=== PATIENT | female | born 1990 | race African-American/Black ===

== ENCOUNTER 2020-07-03 21:40 | Inpatient (IN) | payer OTHER, SELFPAY ==
[2020-07-03] VITALS (9 sets, daily range): BP systolic 132–154; BP diastolic 64–125; PULSE 18–99; RESP 22; TEMP 36.4–36.6; BMI 35.9
--- NOTE | 2020-07-03 21:40 | LDADM ---
This patient, Vincent Gillespie, was admitted to Labor/Delivery/Recovery 106 on 07/03/20 at 21:40. Plans for labor, pain management and were discussed with patient. Patient/family oriented to hospital policies and general routines including ID bracelet, bed and alarms, visiting hours, pain management, procedures, bathroom and other care routines, personal items, smoking policy, room service/diet and guest tray routines, infant security routines, and visiting hours. Patient/Family are encouraged to report perceived risks to care and to ask questions if they do not understand what they are told or what they should do. See OBIX for further documentation.
[2020-07-03 22:20] LABS: Basophils Percent Auto 0.4 % (0.2-1.2); Eosinophils Percent Auto 0.1 % (0-4.4); Immature Granulocyte Absolute 0.04 K/mm3 (0.00-0.031); Immature Granulocyte Percent A 0.5 % (0-0.5); Lymphocytes Absolute Auto 1.79 K/mm3 (0.9-3.2); Lymphocytes Percent Auto 22.8 % (18.3-44.2); Mean Corpuscular HGB Conc 33.3 g/dl (32-36); Mean Corpuscular Volume 84.1 fl (80-100); Mean Platelet Volume 12.3 fl (7.4-10.4); Monocytes Absolute Auto 0.7 K/mm3 (0.1-0.6); Monocytes Percent Auto 8.7 % (2.6-8.5); Neutrophils Absolute Auto 5.3 K/mm3 (1.3-6.7); Neutrophils Percent Auto 67.5 % (45.5-73.1); Platelet Count Result 134 k/mm3 (150-375); Red Blood Count 4.28 M/mm3 (4.2-5.4); Red Cell Distribution Width 14.5 % (11.5-14.5); White Blood Count 7.9 K/mm3 (4.5-10.0)
--- NOTE | 2020-07-03 23:08 | PM.IMHP ---
H&P: HPI History of Present Illness Date/Time: 07/03/20 23:08 Chief Complaint: contractions Narrative: Vincent Gillespie is a 29 yo @ 38.0wks who presented in to L&D in active labor, found to be 6/50/-1; rapidly progressed to 7/C/0 w/ painful contractions since being seen in clinic earlier today. Good movement. no VB or LOF. She desires a natural delivery w/o pitocin or epidural. 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; repeat antibody testing negative Review of Systems Review of Systems: All systems reviewed & are unremarkable except as noted in HPI and below (HPI) [facility] Family History Family History Other Unknown family medical history Social History Social History Smoking status: Never smoker Substance use: never Spiritual care concerns: No Meds Home Medications and Allergies Home Medications Medication Instructions Recorded Confirmed Type prenat.vits,marie,mkf-bceg-hqjur 1 tablet PO DAILY 06/25/20 06/25/20 History [ #2] Allergies Allergy/AdvReac Type Severity Reaction Status Date / Time No Known Allergies Allergy Verified 06/25/20 12:44 Vital Signs Vital Signs - 24 hr 07/03/20 21:49 07/03/20 21:50 07/03/20 22:01 Temperature 36.4 C Pulse Rate 88 97 Respiratory Rate 22 H Blood Pressure 151/80 H 142/89 H 07/03/20 22:16 Temperature Pulse Rate 85 Respiratory Rate Blood Pressure 134/78 Exam Const: General: cooperative, healthy appearing and acute distress (mild with contractions; handling pain well) Nutritional Appearance: obese Resp: Effort & Inspection: normal respiratory effort and able to speak in complete sentences Cardio: Rate: regular rate GI: GI Palp: No abdominal tenderness and Yes Soft to palpation : Other: FHT's: 140's/ mod efrain/ + accels/ no decels - cat 1 TOCO: ctx's q 2-4min Cervix: 7/C/0 Membranes: AROM, clear 2310 Presentation: cephalic Skin: General skin exam: normal color Neuro: General: patient oriented x3 Extrem: General: normal to inspection Psych: Appearance: grossly normal Affect: normal affect Attitude: cooperative H&P: Results Labs Labs: Short CBC 07/03/20 Range/Units 22:12 WBC 7.9 (4.5-10.0) K/mm3 Hgb 12.0 (12.0-15.0) g/dL Hct 36.0 L (37.0-47.0) % Plt Count 134 L (150-375) k/mm3 Assessment and Plan Assessment and plan (1) Active labor at term: Status: Acute Additional Plan - Admit to L&D for labor - AROM, clear 2310 - Continuous monitoring; reassuring - pt declines pain management; handling well - anticipate
--- NOTE | 2020-07-03 23:19 | WPDHPUPDATE1 ---
History and Physical Update Update Date/Time: 07/03/20 23:19 History and Physical has been reviewed, including an updated exam of the patient. There are NO changes in the patient's condition. Risks, benefits, and alternatives have been discussed and questions answered. Patient agrees to proceed with procedure.
[2020-07-03] MEDS: OXYTOCIN 30 UNITS/NS 500 ML 30 UNITS/500 ML BAG 999 UNITS IV CONT (23:30)
--- NOTE | 2020-07-03 23:40 | PC.NURSE ---
upon pt delivering Dr. Abebe asked pt where pt other child was. pt stated at home asleep. Upon further investigation pt state home alone. FOB was sent home immediately after this information was released.
--- NOTE | 2020-07-03 23:40 | PM.OBPRVD ---
OB - Delivery Note Procedure Delivery date: 07/03/20 Intrapartal events: Precipitous Labor < 3 hours Delivery augmentation: rupture of membranes Delivery monitor: external FHT and external uterine Route of delivery: Laceration Description: None Quantitative Blood Loss (ml): 250 Anesthesia type: None Disposition: floor Narrative: Patient rapidly progressed to complete dilation with strong desire to push. She pushed for 1 contraction and delivered the head over intact perineum. She immediately delivered the shoulders and body without complications. Nuchal cord was noted to be loose. Infant had spontaneous cry. The umbilical cord was clamped and cut. The infant was then placed skin to skin on [facility]. A segment of the cord was collected for cord gases. The remaining cord blood was collected for typing. With Pitocin running and gentle downward traction on the umbilical cord the placenta delivered without complications. Fundal massage revealed good uterine tone and minimal bleeding was noted. The vagina and perineum were examined and no lacerations were noted. Fundal massage revealed good uterine tone and minimal bleeding was still noted. Sponge, lap, and instrument counts were correct at the end procedure. Mom and baby were left bonding in a stable condition. [place] Baby Date of : 07/03/20 Time of : 23:27 Weeks of gestation at delivery: 38 Infant gender: Female presentation: vertex position: Left Occiput Anterior Placenta delivery description: Expressed cord vessel description: 3 Vessels, Nuchal Cord and Loose score one minute: 9 score five minutes: 9
[2020-07-04] VITALS (13 sets, daily range): BP systolic 86–135; BP diastolic 47–115; PULSE 74–92; RESP 16–18; TEMP 36.4–36.9; O2SAT 99–100
[2020-07-04] MEDS: IBUPROFEN 600 MG TABLET PO ×2 (01:12→09:17)
[2020-07-04] MEDS: BENZOCAINE 20% AER SPR (*SP) 56 GM CAN 1 SPRAY TOPICAL (01:40)
[2020-07-04] MEDS: WITCH HAZEL 40 PADS 1 PAD TOPICAL (01:40)
[2020-07-04 06:08] LABS: Hematocrit 35.3 % (37.0-47.0); Hemoglobin 11.7 g/dL (12.0-15.0)
[2020-07-04 07:50] LABS: Rapid Plasma Reagin Non-Reactive (NonReactive)
--- NOTE | 2020-07-04 08:05 | PC.NURSE ---
Consult with pt., mother reports is eagerly feeding with slight tenderness, this is mother's 2nd child to breastfeed. Requested mother call out next feeding for observation per policy. Reviewed feeding cues, frequencies, duration of feedings, feeding elimination flow sheet, and signs of adequate intake. Instructed feeding should be initiated three hours from start of last feeding or if feeding cues are noted before. Mother voiced understanding of information shared.
[2020-07-04] MEDS: MULTIVIT/MIN/PREN/FOL AC/IRON TABLET 1 TAB PO (09:17)
[2020-07-04] MEDS: ACETAMINOPHEN 325 MG TABLET 650 MG PO ×2 (12:48→20:00)
--- NOTE | 2020-07-04 13:09 | PM.OBPNVD ---
OB - PN: Subj Subjective Date/time seen: 07/04/20 13:09 PPD#1 Vincent reports doing well today. She has mild cramping pain; PO meds are helping. 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 She has tolerated regular diet w/o issue. She has voided. She has ambulated without symptoms of anemia. She would like to go home as soon as possible. No CP, SOB, vision changes, PERLA, N/V, fever, chills, dizziness or palpitations. OB - PN: Obj Data Labs CBC & Chem 7: 07/04/20 05:42 Labs: Laboratory Results - last 24 hr 07/03/20 07/03/20 07/03/20 22:12 22:12 22:12 WBC 7.9 RBC 4.28 Hgb 12.0 Hct 36.0 L MCV 84.1 MCH 28.0 MCHC 33.3 RDW 14.5 Plt Count 134 L MPV 12.3 H Immature Gran % (Auto) 0.5 Neut % (Auto) 67.5 Lymph % (Auto) 22.8 [place] % (Auto) 8.7 H Eos % (Auto) 0.1 Baso % (Auto) 0.4 Lymph # (Auto) 1.79 [place] # (Auto) 0.7 H Eos # (Auto) 0.0 Baso # (Auto) 0.0 Abs Immat Gran (auto) 0.04 H Absolute Neuts (auto) 5.3 Absolute Nucleated RBC 0.0 Nucleated RBC % 0.0 RPR Non-reactive Blood Type A Positive Antibody Screen Negative 07/04/20 05:42 WBC RBC Hgb 11.7 L Hct 35.3 L MCV MCH MCHC RDW Plt Count MPV Immature Gran % (Auto) Neut % (Auto) Lymph % (Auto) [place] % (Auto) Eos % (Auto) Baso % (Auto) Lymph # (Auto) [place] # (Auto) Eos # (Auto) Baso # (Auto) Abs Immat Gran (auto) Absolute Neuts (auto) Absolute Nucleated RBC Nucleated RBC % RPR Blood Type Antibody Screen OB - PN A/P Assessment and Plan (1) Normal vaginal delivery of second : Code(s): O80 - Encounter for full-term uncomplicated delivery Status: Acute Plan day: 1 Plan: routine care and discharge home (tomorrow) Comments: - pelvic rest, take meds as prescribed - f/u in 4 wks - ER return precautions discussed: bleeding, HTN, n/v/abd pain, fever Time Spent With Patient Time: Total time spent is greater than 50% in coordination of care (as documented) at patient's floor/unit and/or counseling patient: Review of Systems Review of Systems: All systems reviewed & are unremarkable except as noted in HPI and below (HPI) Exam Const: General: cooperative, healthy appearing, comfortable and no acute distress Resp: Effort & Inspection: normal respiratory effort and able to speak in complete sentences Auscultation: clear to auscultation bilaterally Cardio: Rate: regular rate GI: GI Palp: No abdominal tenderness and Yes Soft to palpation Auscultation: normal bowel sounds : Other: fundus firm below umbilicus; normal lochia Skin: General skin exam: normal color Neuro: General: patient oriented x3 Extrem: General: normal to inspection Psych: Appearance: grossly normal Affect: normal affect Attitude: cooperative
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
--- NOTE | 2020-07-05 08:10 | PC.NURSE ---
Mother called out for assist with feeding. Consulted with patient, reports has fed well since . Mother has nipple discomfort with latch during most of the feeding. Both nipples are slightly reddened, nipple care reviewed and lanolin provided. Advised warm moist heat for 10 minutes a few times per day. Reviewed infant feeding cues, frequencies, duration of feedings, feeding elimination flow sheet, and signs of adequate intake. Demonstrated stimulation techniques to wake for feeding. Assisted with to breast. Reviewed positioning/alignment in cross cradle, holding breast in U hold and guided asymmetrical latch on. was able to latch correctly within a few attempts. nursed eagerly, with steady draws and frequent swallowing noted. Reviewed signs of a correct latch, effective nursing and suck swallow ratio. was able to maintain latch. Mother reported tenderness at times, had slipped to shallow latch. Demonstrated how to adjust latch more deeply while feeding. Mother quickly reports she can feel infant is latched more deeply and has minimal tenderness. Suggested to stimulate infant while feeding to keep infant awake and nursing effectively for increased stimulation and increased intake. Instructed mother to call out for RN assistance if she is unable to latch for feeding or she has discomfort with nursing. Instructed feeding should be initiated three hours from start of last feeding or if feeding cues are noted before. Mother voiced understanding of information shared. Mother plans on discharge this day. Mother is able to independently latch with appropriate positioning/alignment. She reports slight nipple discomfort which improved greatly with deeper latch. , is feeding as required and waking to feed if needed. has had several effective feedings in the past 24 hours, and is currently meeting outcomes for weight, output, jaundice and feeding frequencies. Mother states she feels confident to continue effective at home. Reviewed transition to breast milk, signs of adequate intake, and engorgement/relief. Instructed to call ICP if intake/output less than required. Reviewed regular medications mother is taking. Information provided per [facility]. Reviewed community resources on the [facility] and in the Mom/Baby guide. Information on outpatient services provided. Mother has no further questions at this time.
[2020-07-05 08:20] VITALS: BP 99/69; PULSE 78; RESP 18; TEMP 36.4; O2SAT 100
--- NOTE | 2020-07-05 10:00 | PC.NURSE ---
Felisha from [facility] called this AM to inform me that she spoke with DCFS and they will be making a home visit to the pt's home today to evaluate home situation based on recent hx as referred to in Care Coordination note. Pt may be d/c'd per MD order and DCFS will follow up after discharge.
[2020-07-05] MEDS: ACETAMINOPHEN 325 MG TABLET 650 MG PO (10:40)
[2020-07-05] MEDS: MULTIVIT/MIN/PREN/FOL AC/IRON TABLET 1 TAB PO (10:40)
--- NOTE | 2020-07-05 11:35 | PCCCNOTE ---
[facility]ination. Spoke with Danilo DCFS traffic investigator, from [place], [place] [phone] and she reports pt. and baby can go home today before she sees them. She plans to see them at their home this afternoon. She attempted to go to home yesterday, but dad must not have been home. Notified RN who will tell patient.
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
--- NOTE | 2020-07-09 12:51 | PM.OBDSVD ---
DS: Admitting Diagnosis Admitting Diagnosis Admitting Diagnosis: contractions; labor DS: Discharge Diagnosis Discharge Diagnosis (1) Normal vaginal delivery of second : Code(s): O80 - Encounter for full-term uncomplicated delivery Status: Acute (2) Active labor at term: Status: Acute OB - DS: Summary OB Procedures : Ultrasound OB Procedures Intrapartum: Spontaneous Vag Delivery OB Procedures: : None Peripartum Data Delivery Method: Natural Vaginal Laceration Description: None complications: none Leming 1: Gender: Female Disposition of : home Status at Discharge Functional status at discharge: independent ambulation Overall status at discharge: patient is back to baseline Time Spent with Patient Time attestation: Total time spent providing and/or coordinating discharge services: Time spent: Less than 30 minutes Exam Const: General: cooperative, comfortable and no acute distress Nutritional Appearance: obese Resp: Effort & Inspection: normal respiratory effort and able to speak in complete sentences Auscultation: clear to auscultation bilaterally Cardio: Rate: regular rate GI: Inspection: normal to inspection and non-distended GI Palp: No abdominal tenderness and Yes Soft to palpation Auscultation: normal bowel sounds : Other: fundus firm below umbilicus Skin: General skin exam: normal color Neuro: General: patient oriented x3 Extrem: General: normal to inspection Psych: Appearance: grossly normal Affect: normal affect Attitude: cooperative Discharge Plan Discharge Attending physician on discharge: Felisha Abebe Discharging Clinician: Felisha Abebe Anticipated Discharge Date/Time: 07/05/20 10:00 Patient Disposition: Home, Self-Care Activity: pelvic rest Diet: regular Discharge Instructions: Education: Mom and Baby Guide Given to: Mother Follow-Up: Call your delivering provider's office for an appointment to be seen in: 4 Weeks Mom and baby should come to the [facility] for the follow-up appointment. Appointment Date/Time: July 08, 2020 at 10:00 am What to expect at your follow-up visit: Physical Assessment Call [phone] if you are unable to keep your appointment time. BREAST CARE: * Wear a snug supportive bra. * For engorgement discomfort: Breast Feeding: * Apply warm moist washcloths * Express milk as needed to relieve engorgement * Wear loose clothing * For sore nipples: * Identify correct latch-on * Apply warm moist washcloths before and after nursing * Air dry nipples after nursing * May apply Lansinoh cream to nipples PERINEAL CARE: * Until bleeding stops, use your vahid bottle after urinating * Change your pad frequently throughout the day * You may take sitz baths several times a day (fill your bathtub with warm water and soak for 20 minutes.) Do NOT bathe in the water * No tub baths until seen by your physician - You may shower ACTIVITY: * Rest as much as possible. * Do not exercise or lift anything heavier than your baby (such as laundry or other children.) * Avoid stairs or driving as much as possible. * Do not put anything into the vagina. No douching, tampons, or sexual activity until seen by physician. NOTIFY PHYSICIAN IF YOU HAVE ANY QUESTIONS OR IF ANY OF THE FOLLOWING SYMPTOMS OCCUR: * If your stitches become red, swollen, or more painful than what you have experienced in the hospital. * If your vaginal bleeding becomes foul smelling. * If your vaginal bleeding becomes more heavy than a period or if your bleeding changes from pink to bright red. However, you may pass an occasional walnut-sized clot once or twice for the first week . * If you experience a sharp, shooting pain in you calves. * If you discover a hard, reddened area on your breast or if you experience flu-like sym
== END 2020-07-05 13:45 | disposition home or self-care (01) | DRG 560 ==
LOC: ANHLDR 21:53 → ANHOB2 07-04 01:55
PROVIDERS: Admitting Provider Obstetrics & Gynecology; Visit Provider Obstetrics & Gynecology
DX: O62.3 Precipitate labor (principal); O99.02 Anemia complicating childbirth; D64.9 Anemia, unspecified; O69.81X0 Labor and delivery complicated by cord around neck, without compression, not applicable or unspecified; Z3A.38 38 weeks gestation of pregnancy; Z37.0 Single live birth
CPT/HCPCS: 36415; 85014; 85018; 85025; 86592; 86850; 86900; 86901; A9270; J2590

== ENCOUNTER 2023-05-24 12:05 | Inpatient (IN) | payer OTHER, SELFPAY ==
[2023-05-24] VITALS (20 sets, daily range): BP systolic 88–153; BP diastolic 35–106; PULSE 81–180; RESP 18; TEMP 36.2–36.6; O2SAT 98–100; BMI 35.7
[2023-05-24 12:44] LABS: Basophils Percent Auto 0.3 % (0.2-1.2); Eosinophils Percent Auto 0.2 % (0-4.4); Hematocrit 39.3 % (37.0-47.0); Hemoglobin 12.6 g/dL (12.0-15.0); Immature Granulocyte Absolute 0.05 K/mm3 (0.00-0.031); Immature Granulocyte Percent A 0.6 % (0-0.5); Lymphocytes Absolute Auto 1.51 K/mm3 (0.9-3.2); Lymphocytes Percent Auto 16.7 % (18.3-44.2); Mean Corpuscular HGB Conc 32.1 g/dl (32-36); Mean Corpuscular Hemoglobin 27.3 pg (26-34); Mean Corpuscular Volume 85.1 fl (80-100); Monocytes Absolute Auto 0.6 K/mm3 (0.1-0.6); Monocytes Percent Auto 6.7 % (2.6-8.5); Neutrophils Absolute Auto 6.8 K/mm3 (1.3-6.7); Neutrophils Percent Auto 75.5 % (45.5-73.1); Platelet Count Result 142 k/mm3 (150-375); Red Blood Count 4.62 M/mm3 (4.2-5.4); Red Cell Distribution Width 15.9 % (11.5-14.5); White Blood Count 9.1 K/mm3 (4.5-10.0)
[2023-05-24] MEDS: AMPICILLIN 2 GM/NS 100 ML 2 GM/100 ML BAG IVPB (12:46)
[2023-05-24] MEDS: LACTATED RINGERS 1,000 ML 125 ML IV CONT (12:47)
--- NOTE | 2023-05-24 13:04 | PM.IMHP ---
H&P: HPI History of Present Illness Date/Time: 05/24/23 13:04 Chief Complaint: leakage of fluid Narrative: Vincent is a 32yo @ 40.1wks who presented to L&D with leakage of fluid since noon on 05/23/23. She has been having contractions. Good movement. No VB. Her is complicated by: - late to PNC - Elevated 1 hour glucose; 3 hour normal - Plts of 146k; repeat 125k; repeat 142k today - Prolonged rupture of membranes Review of Systems Constitutional: Constitutional: Denies chills, Denies fever(s) and Denies headache(s) Eyes: Eyes: Denies change in vision ENT: Denies headache(s) Cardiovascular: Cardiovascular: Denies chest pain and Denies dyspnea Respiratory: Respiratory: Denies dyspnea Genitourinary: Genitourinary: Denies abnormal vaginal bleeding and Reports vaginal discharge Neurologic: Denies headache(s) Psychiatric: Psychiatric: Denies anxiety and Denies depression [facility] Past Medical History Medical History Elevated glucose tolerance test Suppression of menses Surgical History Surgical History H/O gynecological procedure 08/15/20 Mirena IUD insertion 08/2021 Mirena IUD removal Family History Family History Mother Hypertension Diabetes mellitus Social History Social History Smoking status: Never smoker Alcohol intake: never Substance use: never Lack of Transportation: No Current Housing: I Have Housing Concerned About Future Housing: No Difficulty Paying Gas/Electric Bills: No Difficulty Paying for Meds: No Currently Unemployed: No Education: Bachelor's Degree Living arrangements: with family Occupation/Education: occupation Gender identity (if verbalized by the patient): Female Spiritual care concerns: No Meds Home Medications and Allergies Home Medications Medication Instructions Recorded Confirmed Type prenat.vits,marie,wrn-jalv-ktmqp 1 tablet PO DAILY 90 days #90 tabs 07/04/20 05/19/23 Rx magnesium oxide 400 mg (241.3 mg 400 mg PO DAILY #90 tabs 02/05/23 05/19/23 Rx magnesium) tablet Allergies Allergy/AdvReac Type Severity Reaction Status Date / Time No Known Allergies Allergy Verified 05/19/23 13:27 Vital Signs Vital Signs - 24 hr 05/24/23 12:50 05/24/23 13:01 Pulse Rate 91 91 Blood Pressure 122/67 119/71 Exam Const: General: cooperative, comfortable, no acute distress and obese Nutritional Appearance: obese Orientation/consciousness: patient oriented x3 Resp: Effort & Inspection: normal respiratory effort Cardio: Rate: regular rate GI: GI Palp: No abdominal tenderness : Other: FHT's: 130's/ mod efrain/ + accels/ no decels - cat 1 TOCO: ctxs q5min Cervix: 4.5/90/-2 Membranes: SROM, 1200 on 05/23/23-- forebag 1310 with meconium noted Presentation: cephalic Skin: General skin exam: normal color Neuro: General: patient oriented x3 Extrem: General: normal to inspection Psych: Appearance: grossly normal Affect: normal affect Attitude: cooperative H&P: Results Labs Labs: Short CBC 05/24/23 Range/Units 12:38 WBC 9.1 (4.5-10.0) K/mm3 Hgb 12.6 (12.0-15.0) g/dL Hct 39.3 (37.0-47.0) % Plt Count 142 L (150-375) k/mm3 Assessment and Plan Assessment and plan (1) Prolonged rupture of membranes: Code(s): O42.90 - Premature rupture of membranes, unspecified as to length of time between rupture and onset of labor, unspecified weeks of gestation Status: Acute (2) Gestational thrombocytopenia: Qualifiers: Trimester: third trimester Qualified Code(s): O99.113 - Other diseases of the blood and blood-forming organs and certain disorders involving the immune mechanism complicating , third trimester; D69.6 - Thrombocytope
--- NOTE | 2023-05-24 13:43 | LDADM ---
This patient, Vincent Gillespie, was admitted to Labor/Delivery/Recovery 107 on 05/24/23 at 12:05. Plans for labor, pain management and were discussed with patient. Patient/family oriented to hospital policies and general routines including ID bracelet, bed and alarms, visiting hours, pain management, procedures, bathroom and other care routines, personal items, smoking policy, room service/diet and guest tray routines, infant security routines, and visiting hours. Patient/Family are encouraged to report perceived risks to care and to ask questions if they do not understand what they are told or what they should do. See OBIX for further documentation.
--- NOTE | 2023-05-24 15:10 | PM.OBPRVD ---
OB - Vaginal Delivery Note Procedure Delivery date: 05/24/23 Delivery augmentation: Rupture of Membranes (of forebag) Delivery monitor: Internal FHT and Internal Uterine Route of delivery: Episiotomy description: None Laceration Description: None Specimen: Yes (placenta) Quantitative Blood Loss (ml): 100 Anesthesia type: None Disposition: Floor Complications: No immediate complications Baby Date of : 05/24/23 Time of : 14:57 Weeks of gestation at delivery: 40 (.1) Infant gender: Female presentation: vertex position: Left Occiput Anterior Placenta delivery description: Expressed Cord Vessel Description: 3 Vessels, Nuchal Cord, Loose, Reduced and Delayed Cord Clamping score one minute: 9 score five minutes: 9 Narrative: Olaitan rapidly progressed to complete dilation with strong desire to push. She pushed approximately 3 times and delivered the head over intact perineum. Nuchal cord was noted, but was loose and therefore reduced without issue. She easily delivered the 's shoulders and body without complication. The was immediately placed skin to skin and had spontaneous cry. The pediatric team was present and bulb suctioned her mouth and nose. Delayed cord clamping was performed. The umbilical cord was doubly clamped and cut. A segment of the cord was collected for cord gases. The remaining cord blood was collected for typing. With Pitocin running and gentle downward traction on the cord, the placenta delivered without complications. Minimal bleeding was noted. Her fundus was firm. She was examined and no lacerations were identified. Sponge, lap, instrument, needle counts were correct at the end the procedure. Mom and baby were left bonding in the birthing suite in stable condition. [facility] Delivery Billing Delivery Delivery: Delivery Charge
[2023-05-24] MEDS: OXYTOCIN 30 UNITS/NS 500 ML 30 UNITS/500 ML BAG IV CONT (15:34)
--- NOTE | 2023-05-24 18:01 | OBPPTRN ---
Patient transferred to post room #281 via wheelchair. Support person present. Oriented to unit, room, information board, rooming in, admission packet and security measures. Patient verbalizes understanding.
[2023-05-24] MEDS: IBUPROFEN 600 MG TABLET PO (18:40)
[2023-05-25 03:30] VITALS: BP 98/57; PULSE 80; RESP 18; TEMP 36.6; O2SAT 100
[2023-05-25 03:53] LABS: Hematocrit 35.8 % (37.0-47.0); Hemoglobin 11.6 g/dL (12.0-15.0); Mean Corpuscular HGB Conc 32.4 g/dl (32-36); Mean Corpuscular Hemoglobin 27.2 pg (26-34); Mean Corpuscular Volume 83.8 fl (80-100); Mean Platelet Volume 11.7 fl (7.4-10.4); Platelet Count Result 139 k/mm3 (150-375); Red Blood Count 4.27 M/mm3 (4.2-5.4); Red Cell Distribution Width 15.7 % (11.5-14.5); White Blood Count 10.7 K/mm3 (4.5-10.0)
--- NOTE | 2023-05-25 06:30 | P.PNOB_ITS ---
OB - PN: Subj Subjective Date/time seen: 05/25/23 06:30 Narrative: PPD#1 Vincent reports doing well today. 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 Her pain is controlled. She is tolerating regular diet, voiding, passing gas, and ambulating without issues. She is breast feeding. OB - PN: Obj Data Labs 05/25/23 03:28 Labs: Laboratory Results - last 24 hr 05/24/23 05/25/23 12:38 03:28 WBC 9.1 10.7 H RBC 4.62 4.27 Hgb 12.6 11.6 L Hct 39.3 35.8 L MCV 85.1 83.8 MCH 27.3 27.2 MCHC 32.1 32.4 RDW 15.9 H 15.7 H Plt Count 142 L 139 L MPV 12.0 H 11.7 H Immature Gran % (Auto) 0.6 H Neut % (Auto) 75.5 H Lymph % (Auto) 16.7 L [place] % (Auto) 6.7 Eos % (Auto) 0.2 Baso % (Auto) 0.3 Lymph # (Auto) 1.51 [place] # (Auto) 0.6 Eos # (Auto) 0.0 Baso # (Auto) 0.0 Abs Immat Gran (auto) 0.05 H Absolute Neuts (auto) 6.8 H Absolute Nucleated RBC 0.0 Nucleated RBC % 0.0 Blood Type A Positive Antibody Screen Negative OB - PN A/P Assessment and Plan (1) Normal vaginal delivery of third : Code(s): O80 - Encounter for full-term uncomplicated delivery Status: Acute Plan day: 1 Plan: routine care and discharge home (tomorrow) Comments: - no signs of infection; WBC at expected value s/p delivery - Pelvic rest; take meds as prescribed - ER return precautions: fever, n/v/abd pain, bleeding, HTN Time Spent With Patient Time: Total time spent is greater than 50% in coordination of care (as documented) at patient's floor/unit and/or counseling patient: Review of Systems Constitutional: Constitutional: Denies chills, Denies fever(s) and Denies headache(s) Eyes: Eyes: Denies change in vision ENT: Denies dizziness and Denies headache(s) Cardiovascular: Cardiovascular: Denies chest pain, Denies palpitations and Denies dyspnea Respiratory: Respiratory: Denies cough and Denies dyspnea Gastrointestinal: Gastrointestinal: Denies nausea and Denies vomiting Neurologic: Denies dizziness and Denies headache(s) Endocrine: Endocrine: Denies palpitations Exam Const: General: cooperative, comfortable and no acute distress Orie ntation/consciousness: patient oriented x3 Resp: Effort & Inspection: normal respiratory effort Auscultation: clear to auscultation bilaterally Cardio: Rate: regular rate GI: Inspection: non-distended GI Palp: No abdominal tenderness and Yes Soft to palpation Auscultation: normal bowel sounds : Other: fundus firm Skin: General skin exam: normal color Neuro: General: patient oriented x3 Extrem: General: normal to inspection Psych: Appearance: grossly normal Affect: normal affect Attitude: cooperative
[2023-05-25 08:40] VITALS: BP 118/66; PULSE 82; RESP 16; TEMP 36.6; O2SAT 100
[2023-05-25] MEDS: DOCUSATE SODIUM 100 MG CAPSULE PO (08:56)
[2023-05-25] MEDS: IBUPROFEN 600 MG TABLET PO ×2 (08:56→15:02)
[2023-05-25] MEDS: MULTIVIT/MIN/PREN/FOL AC/IRON TABLET 1 TAB PO (08:56)
[2023-05-25 12:19] VITALS: BP 99/58; PULSE 84; RESP 16; TEMP 36.6; O2SAT 99
--- NOTE | 2023-05-25 12:36 | PC.NURSE ---
[id number] Introductions were made, then consulted with patient to assess needs related to . Mother led the conversation with her?plans to feed?her infant, the?experience so far and her history with her other two children. Encouraged understanding of the benefits of skin to skin (demonstrating unwrapping and placing upright on her chest), stimulating with massage touch, changing positions to encourage wakefulness, demonstrated changing the wet and stool diaper, how to watch for early feeding cues, responsive feeding, feeding on demand (aiming for 8-12 times in 24 hours, about every 2-3 hours), milk production, building/maintaining a milk supply, duration of feeding, signs of adequate intake/output and how to record on the feeding sheet. Mother works well with her with encouragement and education. Reviewed positioning and ear, shoulder, hip alignment, supporting the breast to facilitate a deep latch, asymmetrical latch (off-center), leading with the chin with a big, open, wide gape and body close to mother. latched optimally to the right, then left breast in cradle, then cross cradle position. Education given to the mother of how to visualize the suckling (with good rocking jaw motion), swallows (dropping of the lower jaw) and how to listen for drinking at the breast (the ka sound) and demonstrated swallowing. Infant was able to maintain latch without pain to mother protecting the nipple with optimal positioning and latching. Reviewed comfort measures of healing with a warm, wet washcloth to rinse breast, then leave open to air-dry, good handwashing when or touching the breast/nipples to prevent infection. Mother voiced understanding of skin to skin, stimulating with massage touch, responsive feedings, hand expressed colostrum, talking to infant to encourage if it has been 2 -2.5 hours since the start of the last , to call if infant does not latch, difficulty waking infant to breastfeed, or if there is discomfort with . Resources used for education were facilitated with the visual educational handouts, tool, mom and baby guide. Inpatient/outpatient resources provided with feeding sheet, name written on the communication board, and the mom/baby guide. Mother voiced understanding of information, demonstrated learning and will call if there is a request for assistance.
[2023-05-25 15:29] LABS: Rapid Plasma Reagin Non-Reactive (NonReactive)
[2023-05-25 18:50] VITALS: BP 109/62; PULSE 86; RESP 18; TEMP 36.6; O2SAT 100
--- NOTE | 2023-05-26 07:14 | PM.OBDSVD ---
DS: Admitting Diagnosis Discharge Date 05/26/23 Admitting Diagnosis prolonged rupture of membranes at 40.1wks DS: Discharge Diagnosis Discharge Diagnosis (1) Normal vaginal delivery of third : Code(s): O80 - Encounter for full-term uncomplicated delivery Status: Acute (2) Gestational thrombocytopenia: Qualifiers: Trimester: third trimester Qualified Code(s): O99.113 - Other diseases of the blood and blood-forming organs and certain disorders involving the immune mechanism complicating , third trimester; D69.6 - Thrombocytopenia, unspecified Code(s): O99.119 - Other diseases of the blood and blood-forming organs and certain disorders involving the immune mechanism complicating , unspecified trimester; D69.6 - Thrombocytopenia, unspecified Status: Acute (3) Prolonged rupture of membranes: Code(s): O42.90 - Premature rupture of membranes, unspecified as to length of time between rupture and onset of labor, unspecified weeks of gestation Status: Acute OB - DS: Summary OB Procedures : Ultrasound OB Procedures Intrapartum: Spontaneous Vag Delivery OB Procedures: : None Peripartum Data Infant Delivery Method: Natural Vaginal Laceration Description: None Episiotomy description: None complications: none 1: Gender: Female Disposition of : home Status at Discharge Functional status at discharge: independent ambulation Overall status at discharge: patient is back to baseline Time Spent with Patient Time attestation: Total time spent providing and/or coordinating discharge services: Time spent: Less than 30 minutes Exam Const: General: cooperative, comfortable, no acute distress and obese Orientation/consciousness: patient oriented x3 Resp: Effort & Inspection: normal respiratory effort Auscultation: clear to auscultation bilaterally Cardio: Rate: regular rate GI: Inspection: non-distended GI Palp: No abdominal tenderness and Yes Soft to palpation Auscultation: normal bowel sounds : Other: fundus firm Skin: General skin exam: normal color Neuro: General: patient oriented x3 Extrem: General: normal to inspection Psych: Appearance: grossly normal Affect: normal affect Attitude: cooperative DS: Data Data Completed and Pending Pending studies at discharge: Pending at discharge 05/24/23 15:00 Surgical [PTH] Routine Labs on day of discharge: Labs from last 24 hours 05/24/23 12:38 RPR Non-reactive Discharge Plan Discharge Attending physician on discharge: Andrae,Felisha N. Discharging Clinician: Felisha Abebe Anticipated Discharge Date/Time: 05/26/23 10:00 Patient Disposition: Home, Self-Care Activity: may shower and pelvic rest Diet: regular Patient Instructions: Antibiotic Form Stand Alone Forms: General Discharge Information Follow-up/Referrals: Felisha Abebe MD [Physician] - 4 Weeks Discharge Medications: New acetaminophen 325 mg Tablet 650 mg PO Q6H PRN (Reason: Mild Pain (1-3) Or Headache) Qty: 60 0RF docusate sodium 100 mg Capsule 100 mg PO BID PRN (Reason: Constipation) Qty: 120 0RF ibuprofen 600 mg Tablet 600 mg PO Q6H PRN (Reason: Cramping) Qty: 40 0RF Continued prenat.vits,marie,[id number] Tablet 1 tablet PO DAILY 90 Days Qty: 90 3RF Date of admission: 05/24/23 12:05 Primary Care Provider: PHYSICIAN,RAT POISONER Admitting Provider: Felisha Abebe Attending physician on admission: Felisha Abebe Condition: Stable
[2023-05-26 07:35] VITALS: BP 113/80; PULSE 88; RESP 16; TEMP 37.1; O2SAT 100
[2023-05-26] MEDS: TETANUS,DIPHTHERIA,AC PERTUSSIS ADULT (0.5 ML) BOOSTRIX IM (08:17)
[2023-05-26] MEDS: MULTIVIT/MIN/PREN/FOL AC/IRON TABLET 1 TAB PO (08:50)
--- NOTE | 2023-05-26 10:35 | PC.NURSE ---
[id number] Mother led the conversation with her experience so far, plan to feed her , and her ability to independently latch optimally without discomfort. Mother states was up a lot crying last night. Reminded mother to use good handwashing technique to prevent infection and typical 2nd 24 hour behavior of a . Mother is feeding appropriately for growth of infant and understands stimulating infant to eat if needed. has had appropriate feedings in the last 24 hours meets the outcomes for weight, output, blood sugar and jaundice at this time. Mother states she is confident to continue effectively her at home, when to call for assistance, denies any additional assistance or education at this time. Reinforced understanding of milk production, transition of milk, signs of adequate intake, transition of stool, prevention/relief of engorgement, plugged ducts, mastitis, responsive watching for feeding cues, the different methods of stimulating to breastfeed 1-3 hours after the start of the last feeding, community resources, and when to call a provider using the resource of the feeding sheet along with the mom and baby guide. Mother voiced understanding of the education shared. Reported to the Primary RN.
[2023-05-27 11:54] VITALS: BP 104/79; PULSE 97; RESP 18; TEMP 36.9; O2SAT 100
== END 2023-05-26 10:47 | disposition home or self-care (01) | DRG 560 ==
LOC: ANHLDR 13:35 → ANHOB2 18:39
PROVIDERS: Admitting Provider Obstetrics & Gynecology; Visit Provider Obstetrics & Gynecology
DX: O42.92 Full-term premature rupture of membranes, unspecified as to length of time between rupture and onset of labor (principal); O99.12 Other diseases of the blood and blood-forming organs and certain disorders involving the immune mechanism complicating childbirth; D69.6 Thrombocytopenia, unspecified; O69.81X0 Labor and delivery complicated by cord around neck, without compression, not applicable or unspecified; O77.0 Labor and delivery complicated by meconium in amniotic fluid; Z3A.40 40 weeks gestation of pregnancy; Z37.0 Single live birth
CPT/HCPCS: 36415; 85025; 85027; 86592; 86850; 86900; 86901; 88307; 90715; A9270; J0290; J2590; J7120

== ENCOUNTER 2023-07-28 11:22 | Outpatient (CLI) | payer OTHER, SELFPAY ==
[2023-07-28 13:12] LABS: Beta HCG Quantitative < 2.39 mIU/ML
== END 2023-07-28 11:23 | disposition home or self-care (01) ==
LOC: ANHLAB 11:23
PROVIDERS: Visit Provider Obstetrics & Gynecology
DX: N92.6 Irregular menstruation, unspecified (principal)
CPT/HCPCS: 36415; 84702